=== PATIENT | female | born 1990 | race Caucasian/White ===

== ENCOUNTER 2022-01-31 07:33 | Emergency (ER) | payer SELFPAY ==
[~2022-01-31] VITALS: Wt 74.8 kg
[2022-01-31 08:24] LABS: HEMATOCRIT 22.9 % (37.0-47.0); MEAN CELL VOLUME 86.4 fl (81.0-99.0); MEAN CORPUSCULAR HGB 25.7 pg (27.0-31.0); MEAN CORPUSCULAR HGB CONC 29.7 g/dl (33.0-37.0); MEAN PLATELET VOLUME 9.4 fl (9.6-12.3); NUCLEATED RED BLOOD CELL 0.4 % (0.0-0.0); PLATELET COUNT AUTOMATED 273 10*3/uL (130-400); RED BLOOD COUNT 2.65 10*6/uL (4.10-5.10); RED CELL DISTRI WIDTH 19.8 % (0-14.5)
[2022-01-31 08:25] LABS: MANUAL DIFF REFLEX YES
[2022-01-31 08:51] LABS: OVALOCYTES FEW; PLATELET SUFFICIENCY NORMAL (NORMAL); POLYCHROMASIA SLIGHT; TOTAL CELLS COUNTED 100 #CELLS
[2022-01-31 09:52] VITALS: BP 104/52
[2022-01-31 10:16] VITALS: BP 115/60
[2022-01-31 10:32] VITALS: BP 113/60
[2022-01-31 10:49] VITALS: BP 104/60
[2022-01-31 11:11] VITALS: BP 107/60
[2022-01-31 11:55] VITALS: BP 104/61
== END 2022-01-31 12:06 | disposition home or self-care (01) ==
LOC: ED 07:33
PROVIDERS: Family Medicine
DX: D64.9 Anemia, unspecified (principal)